=== PATIENT | female | born 2005 | race Caucasian/White ===

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

== ENCOUNTER 2025-06-09 15:46 | Emergency (ER) | payer BC, MEDICAID, OTHER ==
[2025-06-09] MEDS: Ketorolac 30 MG/ML SDV IVPUSH ONE (16:24)
[2025-06-09 16:37] LABS: BASOPHILS PERCENT AUTO 0.8 % (0.0-1.0); EOSINOPHILS PERCENT AUTO 2.6 % (1.0-3.0); LYMPHOCYTES PERCENT AUTO 23.9 % (20.5-50.1); MONOCYTES PERCENT AUTO 6.7 % (2-8); NEUTROPHILS PERCENT AUTO 66.0 % (42.2-75.2); PLATELET COUNT,PLT 303 10^3/uL (150-450); RED BLOOD CELL COUNT 4.70 10^6/uL (4.2-5.4); WHITE BLOOD CELL COUNT,WBC 7.9 10^3/uL (5.0-10.0)
[2025-06-09 16:44] LABS: APPEARANCE,URINE CLEAR (CLEAR); GLUCOSE,URINE NEGATIVE (NEGATIVE); OCCULT BLOOD,URINE NEGATIVE (NEGATIVE)
[2025-06-09 16:56] LABS: EPITHELIAL CELLS,URINE FEW /HPF (NOT SEEN)
[2025-06-09 17:03] LABS: A/G RATIO 1.2; ALANINE AMINOTRANSFERASE,ALT 26.0 U/L (14-59); ASPARTATE AMNIOTRANSFERASE,AST 16.0 U/L (15-37); BILIRUBIN TOTAL 0.2 mg/dL (0.2-1.0); BLOOD UREA NITROGEN,BUN 8.0 mg/dL (7-18); CARBON DIOXIDE,CO2 27.0 mmol/L (21-32); CHLORIDE,CL 105.0 mmol/L (98-107); CREATININE 0.73 mg/dL (0.55-1.02); EST CRCL DRUG DOSING (CG) 98.04 mL/min; GLUCOSE RANDOM 95.0 mg/dL (70-99); POTASSIUM,K 3.6 mmol/L (3.5-5.1); PROTEIN TOTAL,TP 7.9 g/dL (6.4-8.2); SODIUM,NA 140.0 mmol/L (136-145)
[2025-06-09 17:04] LABS: ESTIMATED GFR 121.0 mL/min (>=60)
[2025-06-09] MEDS: Iopamidol 612 MG/ML 100 ML Bottle IVPUSH ONE (17:38)
== END 2025-06-09 18:04 | disposition home or self-care (01) ==
LOC: DL.ED 15:46
DX: R10.32 Left lower quadrant pain (principal); J45.909 Unspecified asthma, uncomplicated; Z79.899 Other long term (current) drug therapy; Z79.51 Long term (current) use of inhaled steroids; Z86.16 Personal history of COVID-19
CPT/HCPCS: 36415; 74177; 80053; 81001; 81025; 85025; 96361; 96374; 99284; J1885; J7030; Q9967

== ENCOUNTER 2025-08-18 16:04 | Emergency (ER) | payer OTHER ==
[2025-08-18 16:37] LABS: APPEARANCE,URINE CLEAR (CLEAR); GLUCOSE,URINE NEGATIVE (NEGATIVE); OCCULT BLOOD,URINE NEGATIVE (NEGATIVE)
[2025-08-18 16:58] LABS: BASOPHILS PERCENT AUTO 0.5 % (0.0-1.0); EOSINOPHILS PERCENT AUTO 3.1 % (1.0-3.0); LYMPHOCYTES PERCENT AUTO 27.6 % (20.5-50.1); MONOCYTES PERCENT AUTO 5.6 % (2-8); NEUTROPHILS PERCENT AUTO 63.2 % (42.2-75.2); PLATELET COUNT,PLT 281 10^3/uL (150-450); RED BLOOD CELL COUNT 4.33 10^6/uL (4.2-5.4); WHITE BLOOD CELL COUNT,WBC 9.8 10^3/uL (5.0-10.0)
[2025-08-18 17:09] LABS: EPITHELIAL CELLS,URINE MODERATE /HPF (NOT SEEN)
[2025-08-18 17:16] LABS: INR 0.9 (0.9-1.2); PTT,PARTIAL THROMBOPLSTIN TIME 25.0 SEC (22.0-34.0)
[2025-08-18 17:19] LABS: A/G RATIO 1.1; ALANINE AMINOTRANSFERASE,ALT 17 U/L (14-59); ASPARTATE AMNIOTRANSFERASE,AST 14 U/L (15-37); BILIRUBIN TOTAL 0.2 mg/dL (0.2-1.0); BLOOD UREA NITROGEN,BUN 11 mg/dL (7-18); CARBON DIOXIDE,CO2 28 mmol/L (21-32); CHLORIDE,CL 103 mmol/L (98-107); CREATINE KINASE,CK 52 U/L (16-191); CREATININE 0.61 mg/dL (0.55-1.02); GLUCOSE RANDOM 102 mg/dL (70-99); POTASSIUM,K 3.9 mmol/L (3.5-5.1); PROTEIN TOTAL,TP 7.8 g/dL (6.4-8.2); SODIUM,NA 139 mmol/L (136-145)
[2025-08-18 17:21] LABS: ESTIMATED GFR 132 mL/min (>=60)
== END 2025-08-18 18:41 | disposition home or self-care (01) ==
LOC: DL.ED 16:04
DX: T75.4XXA Electrocution, initial encounter (principal); Z91.018 Allergy to other foods; Z91.048 Other nonmedicinal substance allergy status; Z79.899 Other long term (current) drug therapy; Z86.16 Personal history of COVID-19
CPT/HCPCS: 36415; 71045; 80053; 81001; 82550; 84484; 85025; 85610; 85730; 93005; 99285